=== PATIENT | female | born 1945 | race Caucasian/White ===

== ENCOUNTER 2017-06-28 20:54 | Emergency (ER) | payer MEDICARE, OTHER ==
[~2017-06-28] VITALS: Ht 160 cm; Wt 61.2 kg
[~2017-06-28 20:54] MED LIST: ACYCLOVIR; ASP325 PO; CEPH-13 PO; CET10 PO; EXCEDRIN; KET10 PO; LEVO125T77 PO; OXYC-865 PO; THYROID MED
--- NOTE | 2017-06-28 20:56 | ER Report ---
History and Physical Time Seen By MD: 20:56 HPI/ROS CHIEF COMPLAINT: Abdominal pain, no bowel movement for 3 days HISTORY OF PRESENT ILLNESS: 71-year-old female presents ambulatory to the ER complaining of no bowel movement for 3 days. She's been having severe cramps. She is concerned she may have a bowel obstruction. She has no previous history of abdominal surgery. She reports a history of severe gastroenteritis a week ago with 3 days of vomiting and diarrhea which resolved spontaneously. Patient denies fever or chills. She reports that she's had vomiting now for 24 hours of bilious fluid. Patient denies recent antibiotic use, exposure to ill contacts consumption of bad food. Denies dysuria, frequency or hematuria. REVIEW OF SYSTEMS: Respiratory: No cough, no dyspnea. Cardiovascular: No chest pain, no palpitations. Gastrointestinal: As above Musculoskeletal: No back pain. Allergies: Uncoded Allergies: HAYFEVER (Allergy, Unknown, 06/28/17) Home Meds Active Scripts Ondansetron (ZOFRAN ODT) 4 Mg Tab.rapdis, 4 MG PO every 6 hours Y for NAUSEA/ VOMITING, #10 TAB TAKE 1 TABLET BY MOUTH EVERY 12 HOURS Prov:MAHESH VARGAS Jairon DO 06/28/17 Tramadol Hcl (TRAMADOL HCL) 50 Mg Tablet, 1 TAB PO Q6H Y for PAIN, #15 MG TAKE ONE TO TWO TABLETS BY MOUTH EVERY FOUR TO SIX HOURS NEEDED Prov:MAHESH VARGAS DO 06/28/17 Reported Medications Levothyroxine Sodium (SYNTHROID) 125 Mcg Tablet, 125 MCG PO QDAY 03/30/17 Discontinued Reported Medications [Excedrin] No Conflict Check, PRN 10/23/07 [Acyclovir] No Conflict Check 10/23/07 Cetirizine Hcl (Zyrtec) 10 Mg Tab, 10 MG PO PRN 10/23/07 [Thyroid Med] No Conflict Check 10/23/07 Past Medical/Surgical History Hypothyroidism, borderline hypertension, knee problems, allergic rhinitis Reviewed Nurses Notes: Yes Old Medical Records Reviewed: Yes Hx Smoking: No Exposure to Second Hand Smoke?: No Hx Substance Use Disorder: No Hx Alcohol Use: No Constitutional Vital Sign - Last 24 Hours 06/28/17 06/28/17 06/28/17 06/28/17 21:06 21:09 21:24 21:30 Temp 98.6 Pulse 159 155 110 Resp 20 12 B/P (MAP) 124/93 116/76 (89) Pulse Ox 91 92 94 O2 Delivery Room Air 06/28/17 06/28/17 06/28/17 06/28/17 21:39 21:44 22:15 22:29 Pulse 91 99 103 Resp 47 17 B/P (MAP) 114/85 (95) Pulse Ox 93 90 06/28/17 06/28/17 22:30 22:44 Pulse 100 Resp 15 B/P (MAP) 122/71 (88) Pulse Ox 95 Physical Exam Vital signs stable, afebrile, pulse ox normal, moderate tachycardic General Appearance: The patient is alert, has no immediate need for airway protection and no current signs of toxicity. Skin warm, dry, pink, mild distress Eyes: Pupils equal and round no injection. Respiratory: Chest is non tender, lungs are clear to auscultation. Cardiac: regular rate and rhythm Gastrointestinal: Abdomen is soft , mild distention and non tender, no masses, bowel sounds normal. Musculoskeletal: Neck: Neck is supple and non tender. No lymphadenopathy Extremities have full range of motion and are non tender. Skin: No rashes or lesions. DIFFERENTIAL DIAGNOSIS: After history and physical exam differential diagnosis was considered for abdominal pain including but not limited to appendicitis, cholecystitis, gastritis, bowel obstruction, constipation, ileus and urinary tract infection. Medical Decision Making Data Points Result Diagram: 06/28/17210906/28/172109 Laboratory Hematology Test 06/28/17 20:54 06/28/17 21:10 Urine Color [place] Urine Clarity Slightly-cloudy Urine pH 5.0 pH (4.8-9.5) Urine Specific [place] 1.023 Urine Protein 30 mg/dL (NEGATIVE) Urine Glucose (UA) Negative mg/dL (NEGATIVE) Urine Ketones Trace mg/dL (NEGATIVE) Urine Blood Negative (NEGATIVE) Urine Nitrite Negative (NEGATIVE) Urine Bilirubin Negative (NEGATIVE) Urine Urobilinogen 2.0 mg/dL (0.2-1.9) Urine Leukocyte Esterase Negative (NEGATIVE) Urine RBC 3 /HPF (0-2/HPF) Urine WBC 2 /HPF (0-5/HPF) Urine Squamous Epithelial Cells Few /LPF (</=FEW) Urine Bacteria Negative /HPF (NONE-FEW) Urine Hyaline Casts Many /LPF (NONE-FEW) Urine Mucus Few /HPF (NONE-FEW) Red Blood Count 5.54 M/uL (4.17-5.56) Mean Corpuscular Volume 89.5 fL (80.0-96.0) Mean Corpuscular Hemoglobin 29.9 pg (26.0-33.0) Mean Corpuscular Hemoglobin Concent 33.4 g/dL (32.0-36.0) Red Cell Distribution Width 12.9 % (11.5-14.5) Mean Platelet Volume 8.1 fL (7.2-11.1) Neutrophils (%) (Auto) 86.9 % (39.4-72.5) Lymphocytes (%) (Auto) 8.8 % (17.6-49.6) Monocytes (%) (Auto) 3.8 % (4.1-12.4) Eosinophils (%) (Auto) 0.2 % (0.4-6.7) Basophils (%) (Auto) 0.3 % (0.3-1.4) Nucleated RBC Relative Count (auto) 0.0 /100WBC Neutrophils # (Auto) 11.2 K/uL (2.0-7.4) Lymphocytes # (Auto) 1.1 K/uL (1.3-3.6) Monocytes # (Auto) 0.5 K/uL (0.3-1.0) Eosinophils # (Auto) 0.0 K/uL (0.0-0.5) Basophils # (Auto) 0.0 K/uL (0.0-0.1) Nucleated RBC Absolute Count (auto) 0.00 K/uL Sodium Level 137 mmol/L (137-145) Potassium Level 4.1 mmol/L (3.5-5.0) Chloride Level 101 mmol/L (98-107) Carbon Dioxide Level 23 mmol/L (22-31) Blood Urea Nitrogen 20 mg/dl (7-18) Creatinine 1.30 mg/dl (0.52-1.04) Glomerular Filtration Rate Calc 40.5 Random Glucose 122 mg/dl (75-110) Calcium Level 10.0 mg/dl (8.4-10.2) Total Bilirubin 0.7 mg/dl (0.2-1.3) Aspartate Amino Transf (AST/SGOT) 24 U/L (0-35) Alanine Aminotransferase (ALT/SGPT) 35 U/L (0-56) Alkaline Phosphatase 96 U/L (0-126) Total Protein 8.1 gm/dl (6.3-8.2) Albumin 4.4 g/dl (3.5-5.0) Amylase Level 117 U/L (0-110) Lipase 110 U/L (23-300) Chemistry Test 06/28/17 20:54 06/28/17 21:10 Urine Color Zita Urine Clarity Slightly-cloudy Urine pH 5.0 pH (4.8-9.5) Urine Specific [place] 1.023 Urine Protein 30 mg/dL (NEGATIVE) Urine Glucose (UA) Negative mg/dL (NEGATIVE) Urine Ketones Trace mg/dL (NEGATIVE) Urine Blood Negative (NEGATIVE) Urine Nitrite Negative (NEGATIVE) Urine Bilirubin Negative (NEGATIVE) Urine Urobilinogen 2.0 mg/dL (0.2-1.9) Urine Leukocyte Esterase Negative (NEGATIVE) Urine RBC 3 /HPF (0-2/HPF) Urine WBC 2 /HPF (0-5/HPF) Urine Squamous Epithelial Cells Few /LPF (</=FEW) Urine Bacteria Negative /HPF (NONE-FEW) Urine Hyaline Casts Many /LPF (NONE-FEW) Urine Mucus Few /HPF (NONE-FEW) White Blood Count 12.9 k/uL (4.5-11.0) Red Blood Count 5.54 M/uL (4.17-5.56) Hemoglobin 16.5 g/dL (12.0-16.0) Hematocrit 49.6 % (34.0-47.0) Mean Corpuscular Volume 89.5 fL (80.0-96.0) Mean Corpuscular Hemoglobin 29.9 pg (26.0-33.0) Mean Corpuscular Hemoglobin Concent 33.4 g/dL (32.0-36.0) Red Cell Distribution Width 12.9 % (11.5-14.5) Platelet Count 460 K/uL (150-450) Mean Platelet Volume 8.1 fL (7.2-11.1) Neutrophils (%) (Auto) 86.9 % (39.4-72.5) Lymphocytes (%) (Auto) 8.8 % (17.6-49.6) Monocytes (%) (Auto) 3.8 % (4.1-12.4) Eosinophils (%) (Auto) 0.2 % (0.4-6.7) Basophils (%) (Auto) 0.3 % (0.3-1.4) Nucleated RBC Relative Count (auto) 0.0 /100WBC Neutrophils # (Auto) 11.2 K/uL (2.0-7.4) Lymphocytes # (Auto) 1.1 K/uL (1.3-3.6) Monocytes # (Auto) 0.5 K/uL (0.3-1.0) Eosinophils # (Auto) 0.0 K/uL (0.0-0.5) Basophils # (Auto) 0.0 K/uL (0.0-0.1) Nucleated RBC Absolute Count (auto) 0.00 K/uL Glomerular Filtration Rate Calc 40.5 Calcium Level 10.0 mg/dl (8.4-10.2) Total Bilirubin 0.7 mg/dl (0.2-1.3) Aspartate Amino Transf (AST/SGOT) 24 U/L (0-35) Alanine Aminotransferase (ALT/SGPT) 35 U/L (0-56) Alkaline Phosphatase 96 U/L (0-126) Total Protein 8.1 gm/dl (6.3-8.2) Albumin 4.4 g/dl (3.5-5.0) Amylase Level 117 U/L (0-110) Lipase 110 U/L (23-300) Urinalysis Test 06/28/17 20:54 Urine Color Zita Urine Clarity Slightly-cloudy Urine pH 5.0 pH (4.8-9.5) Urine Specific [place] 1.023 Urine Protein 30 mg/dL (NEGATIVE) Urine Glucose (UA) Negative mg/dL (NEGATIVE) Urine Ketones Trace mg/dL (NEGATIVE) Urine Blood Negative (NEGATIVE) Urine Nitrite Negative (NEGATIVE) Urine Bilirubin Negative (NEGATIVE) Urine Urobilinogen 2.0 mg/dL (0.2-1.9) Urine Leukocyte Esterase Negative (NEGATIVE) Urine RBC 3 /HPF (0-2/HPF) Urine WBC 2 /HPF (0-5/HPF) Urine Squamous Epithelial Cells Few /LPF (</=FEW) Urine Bacteria Negative /HPF (NONE-FEW) Urine Hyaline Casts Many /LPF (NONE-FEW) Urine Mucus Few /HPF (NONE-FEW) EKG/Imaging Imaging Results: CT scan of the abdomen and pelvis with IV contrast was obtained. The results of the study are CT abdomen with IV contrast CT pelvis with IV contrast HISTORY: Abdominal pain. Vomiting. COMPARISON: None. TECHNIQUE: Axial images were taken through the abdomen and pelvis with intravenous contrast. Sagittal and coronal reformatted images are also submitted. CONTRAST: 75 mL of IV Isovue-370 One of the following dose optimization techniques was utilized in the performance of this exam: Automated exposure control; adjustment of the mA and/ or kV according to the patient's size; or use of an iterative reconstruction technique. Specific details can be referenced in the facility's radiology CT exam operational policy. FINDINGS: Liver/biliary: Negative. Pancreas: Negative. Spleen: Negative. Adrenal glands: Negative. Kidneys: 5 mm hypoattenuating focus in the upper pole of the right kidney, probably a cyst. Pelvic structures: Negative. Bowel: Bowel is normal caliber. There is a moderate stool burden in the large bowel. The appendix is not identified. No pericecal inflammatory changes are seen. There is a mildly thickened appearance of the sigmoid colon along the nondistended segments questionable for thickened appearance due to nondistention versus true wall thickening. There is a diverticulum of the sigmoid colon without evidence of diverticulitis. Peritoneum/retroperitoneum/mesenteries: No intraperitoneal free air or free fluid. Vessels: Mild calcified plaque of the aorta and iliac arteries. Musculoskeletal/body wall: Multilevel disc and facet degenerative changes in the lumbar spine. Grade 1 anterolisthesis of L4 on L5. A 1.1 cm lucent lesion in the L1 vertebral body centrally. Mild degenerative changes in the hips. Lymph node assessment: Negative. Lower chest: Negative. IMPRESSION: Mildly thickened appearance of the sigmoid colon which may be due to nondistention of the segments of the sigmoid colon. Wall thickening due to inflammation of the sigmoid colon or neoplasia is not entirely excluded. No evidence of bowel obstruction. A lucent lesion centrally in the L1 vertebral body is probably an osseous hemangioma. If history of malignancy, a metastasis could have a similar appearance. The study was read by the radiologist. I viewed the images myself on the PACS system. ED Course/Re-evaluation Clinical Indication for ER IV: Hydration, IV Access ED Course Patient was admitted to an examination room. H&P was done. The dental diagnoses was considered. On clinical examination. Patient has severe vomiting for the last 24 hours with a mildly distended abdomen. She's had no bowel movements for 3 days. She suspicious. She has a bowel obstruction. Peripheral IV is established. Blood is sent off. Her diagnostic studies. Patient's medicated with IV Zofran and fentanyl. Her diagnostic studies show elevated white blood cell count of 13,000 with left shift. The remainder of her studies are unremarkable. A CAT scan of the abdomen is performed to rule out bowel obstruction. It's unremarkable. It shows pretty advanced constipation and fecal stasis. Patient was advised a conservative treatment plan of a clear liquid diet and aggressive MiraLAX ingestion. 3-4 times per day for several days. Advised the bottle of magnesium citrate laxative. She's given tramadol for pain relief and Zofran for nausea control. She is advised to follow-up with her primary care Dr. Preciado Decision to Disposition Date: Jun 28, 2017 Decision to Disposition Time: 22:46 Depart Departure Latest Vital Signs Vital Signs Date Time Temp Pulse Resp B/P (MAP) Pulse Ox O2 Delivery O2 Flow Rate FiO2 06/28/17 22:44 100 15 95 06/28/17 22:30 122/71 (88) 06/28/17 21:06 98.6 Room Air Impression: Primary Impression: Constipation Additional Impression: Abdominal pain Condition: Improved Disposition: HOME OR SELF-CARE Referrals: ANNABEL COLÓN MD (PCP) New Scripts Ondansetron (ZOFRAN ODT) 4 Mg Tab.rapdis 4 MG PO every 6 hours Y for NAUSEA/VOMITING, #10 TAB TAKE 1 TABLET BY MOUTH EVERY 12 HOURS Prov: MAHESH VARGAS DO 06/28/17 Tramadol Hcl (TRAMADOL HCL) 50 Mg Tablet 1 TAB PO Q6H Y for PAIN, #15 MG TAKE ONE TO TWO TABLETS BY MOUTH EVERY FOUR TO SIX HOURS NEEDED Prov: MAHESH VARGAS DO 06/28/17 Patient Instructions: Clear Liquid Diet (ED), Constipation (ED) Additional Instructions: Follow clear liquid diet for 48 hours Take MiraLAX powder 1 capful 3-4 times per day Drink plenty of clear fluids Take one bottle of magnesium citrate laxative tomorrow Use Tylenol, ibuprofen and tramadol as needed for pain relief Use Zofran to control nausea and vomiting Follow-up with your primary care if unimproved in 3-5 days Problem Qualifiers Primary Impression: Constipation Constipation type: unspecified constipation type Qualified Codes: K59.00 - Constipation, unspecified Additional Impression: Abdominal pain Abdominal location: lower abdomen, unspecified Qualified Codes: R10.30 - Lower abdominal pain, unspecified MAHESH VARGAS DO Jun 28, 2017 20:56
[2017-06-28] MEDS ORDERED: NS(*) 0.9% 1000 ML BAG 1,000 ML IV ONE (21:06)
[2017-06-28] MEDS ORDERED: fentaNYL CITR 100 MCG/2 ML AMP IVP ONE (21:10)
[2017-06-28] MEDS ORDERED: ONDANSETRON 4 MG/2 ML VIAL IVP ONE (21:10)
[2017-06-28] MEDS ORDERED: NS(*) 0.9% 10 ML VIAL 20 ML ONE (21:17)
[2017-06-28] MEDS ORDERED: IOPAMIDOL 76% 75 ML INFUS BTL 75 ML ONE (21:17)
[2017-06-28 21:18] LABS: PLATELET COUNT, AUTOMATED 460 K/uL (150-450)
[2017-06-28 22:30] VITALS: BP 122/71
--- NOTE | 2017-06-28 22:35 | RADIOLOGY IMAGING REPORT ---
FACILITY: [facility] [place] PATIENT NAME: Farheen Cárdenas : 1945 MR: [id number] V: [id number] EXAM DATE: ORDERING PHYSICIAN: MAHESH VARGAS TECHNOLOGIST: Location: [facility] [place] Patient: Farheen Cárdenas : 1945 Visit/Account:[id number] Date of Sevice: 06/28/2017 EXAMINATION: CT abdomen with IV contrast CT pelvis with IV contrast HISTORY: Abdominal pain. Vomiting. COMPARISON: None. TECHNIQUE: Axial images were taken through the abdomen and pelvis with intravenous contrast. Sagitt al and coronal reformatted images are also submitted. CONTRAST: 75 mL of IV [id number] One of the following dose optimization techniques was utilized in the performance of this exam: Autom ated exposure control; adjustment of the mA and/or kV according to the patient's size; or use of an i terative reconstruction technique. Specific details can be referenced in the facility's radiology C T exam operational policy. FINDINGS: Liver/biliary: Negative. Pancreas: Negative. Spleen: Negative. Adrenal glands: Negative. Kidneys: 5 mm hypoattenuating focus in the upper pole of the right kidney, probably a cyst. Pelvic structures: Negative. Bowel: Bowel is normal caliber. There is a moderate stool burden in the large bowel. The appendix is not identified. No pericecal inflammatory changes are seen. There is a mildly thickened appearance of the sigmoid colon along the nondistended segments questionable for thickened appearance due to nondi stention versus true wall thickening. There is a diverticulum of the sigmoid colon without evidence o f diverticulitis. Peritoneum/retroperitoneum/mesenteries: No intraperitoneal free air or free fluid. Vessels: Mild calcified plaque of the aorta and iliac arteries. Musculoskeletal/body wall: Multilevel disc and facet degenerative changes in the lumbar spine. Grade 1 anterolisthesis of L4 on L5. A 1.1 cm lucent lesion in the L1 vertebral body centrally. Mild degene rative changes in the hips. Lymph node assessment: Negative. Lower chest: Negative. IMPRESSION: Mildly thickened appearance of the sigmoid colon which may be due to nondistention of the segments of the sigmoid colon. Wall thickening due to inflammation of the sigmoid colon or neoplasia is not enti rely excluded. No evidence of bowel obstruction. A lucent lesion centrally in the L1 vertebral body is probably an osseous hemangioma. If history of m alignancy, a metastasis could have a similar appearance. Report Dictated By: Sridhar Dumas MD at 06/28/2017 10:15 PM Report E-Signed By: Sridhar Dumas MD at 06/28/2017 10:31 PM [id number]
[2017-06-28] MEDS ORDERED: TRAM-420 PO (22:48)
[2017-06-28] MEDS ORDERED: ONDA4TAB PO (22:48)
[2017-06-28] MEDS ORDERED: traMADol 50 MG TAB TH 2 TAB/BOTTLE PO ONE (22:50)
[2017-06-28] MEDS ORDERED: ONDANSETRON 4 MG ODT TH SL ONE (22:50)
== END 2017-06-28 23:03 | disposition home or self-care (01) ==
LOC: ER 21:18
DX: K59.00 Constipation, unspecified (principal)
CPT/HCPCS: 74177; 81001; 82150; 83690; 85025; 96361; 96374; 96375; 99284; A9270; J2405; J3010; J7030; Q0162; Q9967; 82040; 82247; 82310; 82374; 82435; 82565; 82947; 84075; 84132; 84155; 84295; 84450; 84460; 84520; C9399; S0119